=== PATIENT | male | born 1990 | race Caucasian/White ===

== ENCOUNTER 2023-07-09 15:34 | Emergency (ER) | payer OTHER, SELFPAY ==
[2023-07-09 15:37] VITALS: BP 131/80
--- NOTE | 2023-07-09 18:05 | ED.GENMED ---
History of Present Illness
General
Chief Complaint: Headache
Time Seen by Provider: 07/09/23 18:05
Travel History
Have you had any contact with someone who has COVID-19?: No
Do you have any symptoms of coronavirus? Fever > 100 degrees, chills, cough, shortness of breath, sore throat, loss of taste or smell, muscle aches, or headache?: No
History of Present Illness
History of Present Illness:
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 He was initially diagnosed with melanoma in March 2022 with initial concern with disease into the lung. Later was found to be metastatic to the brain. He has been getting radiation.
On his way to radiation today he also had some very mild subjective fever and chills however this is fairly common for him. His main concern was ongoing headache for the past week. When he told the doctors at [facility] for radiation
today, they encouraged him to come to the hospital to get a CT of the brain for further evaluation
EXAM:
GENERAL: Well appearing in no distress
HEENT: Moist oral mucosa
CARDIOVASCULAR: No murmurs, normal heart rate, regular rhythm, No chest wall tenderness
PULMONARY: No respiratory distress, breath sounds are clear and equal
ABDOMEN: Soft with no peritoneal signs, no tenderness
NEUROLOGIC: Excellent strength all extremities, no coordination deficits
PSYCHIATRIC: Appropriate mental status, normal insight and judgement
EXTREMITIES: Nontender, no edema, moves all extremities equally
SKIN: No rash, no lesions
TIME OF INITIAL ENCOUNTER: 6:20 PM
NUMBER AND COMPLEXITY OF PROBLEMS ADDRESSED AT THE ENCOUNTER
� Chronic conditions affecting care: Metastatic melanoma
� Acute Exacerbation and/or Progression of Chronic Illness: This is an acute problem
� Differential Diagnosis includes: Worsening metastatic disease from melanoma to the brain, intracranial hemorrhage, nonspecific headache, migraine type headache, tension type headache
AMOUNT AND/OR COMPLEXITY OF DATA TO BE REVIEWED AND ANALYZED
� I performed an independent evaluation of and my interpretation is:
EKG:
CT: I personally reviewed CT imaging and agree with radiologist interpretation that there is no acute abnormality
X-rays:
Laboratory Studies: Not indicated
Other:
� Review of other/old records: I reviewed records from March 2022 which indicates that the patient was diagnosed with melanoma 8 years earlier
� Clinical information was obtained by an independent historian: None needed
� Prescriptions/Medications Considered but not given:
� Further testing considered but not performed:
RISK OF COMPLICATIONS AND/OR MORBIDITY OR MORTALITY OF PATIENT MANAGEMENT
� Social determinants of health affecting care: Lives at home
� Discussion with other providers:
� Escalation of care including admission/observation vs risk of discharge considered: The patient is very well-appearing and very comfortable in appearance. CT imaging is reassuring. His neurologic exam is unremarkable. He has
appropriate mental status. He is eager to go home. Tylenol was given.
Past History
Past History
ED Past Medical History: Cancer (Melanoma R arm/nodes)
ED Past Surgical History: Other (melanoma and lymph nose resection R arm)
Social History
Tobacco: Non-smoker
Alcohol: Occasional
Drug: None
Personal: Single
Living: with family
Phy Exam
Physical Exam
Physical Exam:
See HPI
Course
Orders/Labs/Results
Orders:
Orders
07/09/23 15:[address] [CT Head W/o Iv Contrast] Urgent
Comment:
Reason For Exam: headahce
07/09/23 18:17
Acetaminophen [Tylenol] 1,000 mg PO NOW STA
Vital Signs
Initial and Last Documented VS:
Initial Vital Signs
Temp Pulse Resp BP Pulse Ox
99.0 F 89 18 131/80 99
07/09/23 15:37 07/09/23 15:37 07/09/23 15:37 07/09/23 15:37 07/09/23 15:37
Last Documented Vital Signs
Temp Pulse Resp BP Pulse Ox
99.1 F 79 16 113/77 97
07/09/23 18:36 07/09/23 18:36 07/09/23 18:36 07/09/23 18:36 07/09/23 18:36
*Critical Care Note
Total Time (30-74mins, 75-104mins- exclusive of procedures): Not Applicable
ED Attending Note
-
Portions of this chart may have been created with voice recognition software.� Occasional wrong word or��sound alike� substitutions may have occurred due to the inherent limitations of voice recognition software.
Discharge Plan
Departure
Patient Disposition: Home (Routine Discharge)
Date of Disposition: 07/09/23
Time of Disposition: 18:20
Patient with high blood pressure during this ER visit?: Yes
Discharge Problem:
Headache
Instructions: Headache, Adult (DC), BLOOD PRESSURE
Prescriptions:
No Action
acetaminophen [Tylenol Extra Strength] 500 mg Tablet
1,000 mg PO TIDPRN PRN (Reason: mild pain)
Tafinlar 75 mg Capsule
150 mg PO Q12H
Mekinist 2 mg Tablet
2 mg PO DAILY
Activity Restrictions/Additional Instructions:
We gave a gram of Tylenol. CT imaging of the brain shows no acute abnormality. Follow-up with your doctors. Return here if worse.
Interventions
Interventions:
*Risk Screen - Suicide Last Done: 07/09/23 15:37
*General Assessment Last Done: 07/09/23 15:37
*Neglect/Abuse Screening Last Done: 07/09/23 15:37
ED- Fall Risk Assessment Last Done: 07/09/23 18:37
*ED COVID-19 Vaccine History Last Done: 07/09/23 15:37
*Nursing Disposition Last Done: 07/09/23 18:37
ED- Neurological Assessment Last Done: 07/09/23 18:33
Discharge Date and Time
Discharge Date/Time: 07/09/23 18:36
Print Language: CYMRAES
[2023-07-09] MEDS: TYLENOL 1000 MG PO (18:24)
[2023-07-09 18:36] VITALS: BP 113/77
== END 2023-07-09 18:36 | disposition home or self-care (01) ==
LOC: EMR 15:34
PROVIDERS: EMERGENCY PHYSICIAN Emergency Medicine; FAMILY PHYSICIAN Internal Medicine
DX: R51.9 Headache, unspecified (principal); C43.9 Malignant melanoma of skin, unspecified; C79.31 Secondary malignant neoplasm of brain
CPT/HCPCS: 99284; 70450

== ENCOUNTER → 2023-08-20 12:47 | Outpatient (REF) | payer OTHER, SELFPAY | LOC: MRI 3T 12:47 | PROVIDERS: ATTENDING PHYSICIAN Radiology Radiation Oncology; FAMILY PHYSICIAN Internal Medicine; REFERRING PHYSICIAN Internal Medicine Medical Oncology | DX: C79.31 Secondary malignant neoplasm of brain (principal); C79.49 Secondary malignant neoplasm of other parts of nervous system | CPT/HCPCS: 70553; A9575 ==

== ENCOUNTER → 2023-08-28 12:08 | Outpatient (REF) | payer OTHER, SELFPAY | LOC: RAD 12:08 | PROVIDERS: ATTENDING PHYSICIAN Physician Assistant Medical; FAMILY PHYSICIAN Internal Medicine; REFERRING PHYSICIAN Internal Medicine Medical Oncology | DX: C43.59 Malignant melanoma of other part of trunk (principal) | CPT/HCPCS: 71260; 74177; Q9967 ==

== ENCOUNTER 2023-09-26 19:32 | Emergency (ER) | payer OTHER, SELFPAY ==
[2023-09-26 19:34] VITALS: BP 123/74
[2023-09-26 19:35] VITALS: BMI 28.0
[2023-09-26 19:37] LABS: Glucose - Point of Care 184 mg/dl (70-99)
--- NOTE | 2023-09-26 19:38 | ED.GENMED ---
History of Present Illness
General
Chief Complaint: Seizure
Source: records and ambulance crew
Exam Limitations: altered mental status
Time Seen by Provider: 09/26/23 19:34
Nursing documentation reviewed up to this point in time: agreed with
History of Present Illness
History of Present Illness:
32-year-old male presents with a tonic-clonic seizure lasting a few minutes [place] the [place] left-sided weakness, via EMS no history of seizures by report no trauma, prior records reviewed has a history of metastatic melanoma currently
followed at [place] does not appear to be on any antiepileptics,
Patient's medical oncologist at [facility] [facility] is Dr. Stan West to [phone]
I did reach out to him to update him on the situation he is in agreement with the patient's plan of care he is available by phone at all times
Past History
Past History
ED Past Medical History: Cancer (Melanoma R arm/nodes)
ED Past Surgical History: Other (melanoma and lymph nose resection R arm)
Social History
Tobacco: Non-smoker
Alcohol: Occasional
Drug: None
Personal: Single
Living: with family
Review of Systems
Review of Systems
All Other Systems: Not applicable
Phy Exam
Physical Exam
Physical Exam:
Physical Exam
General: Postictal 32 male no overt signs of trauma
Neck: No jaundice
Heart: Regular
Lungs: no acute respiratory distress. clear bilaterally
Abdomen: Nontender
Neuro: Postictal left-sided weakness
Skin: no rash
Extremities: No edema
Course
Orders/Labs/Results
Orders:
Orders
09/26/23 19:35
Electrocardiogram (*1) Stat
Reason for Study: Other
Other Reason for Exam: Headache
CT Head W/o Cont STROKE ALERT Urgent
Reason For Exam: seizure brain mets
Cardiac Monitoring- Treatment ONCE
EKG- Treatment ONCE
IV Insert/Care/Rem.- Treatment PRN
09/26/23 19:36
Bedside Glucose- Treatment ONCE
Levetiracetam Injectable [Keppra] 2,000 mg IV NOW STA
09/26/23 19:37
Complete Blood Count/With Diff Urgent
Comprehensive Metabolic Panel Urgent
Erythrocyte Sed Rate Urgent
PTT Urgent
Prothrombin Time Urgent
09/26/23 19:43
CR Chest Portable - 1 View Urgent
Comment:
Reason For Exam: sziure melanoma
Reason Study Needs to be Portable: Patient Unstable
09/26/23 20:10
Lorazepam [Ativan] 2 mg IV NOW STA
Abnormal Lab Results
09/26/23 09/26/23
19:36 19:37
RDW 15.9 H %
(11.5-14.5)
Immature Gran % 0.6 H %
(0-0.5)
Carbon Dioxide 8 L* mmol/L
(22-30)
Glucose 177 H mg/dl
(70-99)
Total Bilirubin 1.6 H mg/dl
(0.2-1.3)
AST 235 H U/L
(17-59)
ALT 288 H U/L
(0-50)
Alkaline Phosphatase 144 H U/L
(38-126)
Albumin 5.1 H g/dl
(3.5-5.0)
POC Glucose 184 H mg/dl
(70-99)
09/26/23 19:37
09/26/23 19:37
Vital Signs
Initial and Last Documented VS:
Initial Vital Signs
BP
123/74
09/26/23 19:34
Last Documented Vital Signs
Temp Pulse Resp BP Pulse Ox
98.4 F 85 25 120/75 95
09/26/23 19:56 09/26/23 20:30 09/26/23 20:30 09/26/23 20:00 09/26/23 20:30
MDM/Problems Addressed
Differential Diagnosis Includes:
New onset seizure intracerebral hemorrhage seizure with Mik's paralysis doubt ischemic stroke based on history and physical
MDM/Problems Addressed:
Seizure left-sided weakness
Chronic conditions affecting care:
Brain mets
Acute Exacerbation and/or Progression of Chronic Illness:
Brain mets
*Radiology
Radiology exam reviewed: radiology read reviewed
*Pulse Oximetry
Patient hypoxic: no
*EKG
Interpreted by ED Provider?: Yes
EKG Intrepretation Date: 09/26/23
EKG Intrepretation Time: 20:54
Interpretation: abnormal
Comparison EKG: no comparison EKG present
Heart Rate: 78
Rate: normal
Rhythm: sinus
Ischemia: non-specific ST changes
*Psychologist Social Interpretation
Rate: tachycardiac
Interpretation: abnormal
Heart Rate: 78
*Critical Care Note
Total Time (30-74mins, 75-104mins- exclusive of procedures): 32
Update Note
Update Note:
Initial stroke alert called, in retrospect I do not believe he is a candidate for lytics as he had a tonic-clonic seizure with known brain mets, will send for CT to rule out hemorrhage, the meantime started on antiepileptics
Briefly reviewed with neurology as per the stroke alert protocol in agreement that the patient is not a lytic candidate as he be very high risk for bleeding
Message from radiology negative hemorrhage
Nursing states that his left arm weakness is improved left leg still weak
Perhaps this is seizure with Mik's paralysis
8 PM discussed with parents and trolley coach driver who witnessed the event patient just had his eighth of scheduled 10 proton therapy treatments at [facility], comanaged with Omid Murray
Reviewed with the [facility] have been excepted
ED Attending Note
-
Portions of this chart may have been created with voice recognition software.� Occasional wrong word or��sound alike� substitutions may have occurred due to the inherent limitations of voice recognition software.
Discharge Plan
Departure
Patient Disposition: Acute Care Hospital
Date of Disposition: 09/26/23
Time of Disposition: 20:54
Condition: Serious
Discharge Problem:
New onset seizure
Instructions: Seizures, Adult (DC)
Prescriptions:
No Action
acetaminophen [Tylenol Extra Strength] 500 mg Tablet
1,000 mg PO TIDPRN PRN (Reason: mild pain)
Tafinlar 75 mg Capsule
150 mg PO Q12H
Mekinist 2 mg Tablet
2 mg PO DAILY
Referrals:
UNKNOWN - PT DOES,NOT KNOW [Family Provider] -
Hospital Transfer
Other hospital: [facility]
I certify that the patient requires transfer: Yes
Discussed case with accepting physician: [facility]
Reason for transfer: higher level of care
Interventions
Interventions:
*Risk Screen - Suicide Last Done: 09/26/23 19:41
*General Assessment Last Done: 09/26/23 19:58
*Neglect/Abuse Screening Last Done: 09/26/23 19:41
ED- Fall Risk Assessment Last Done: 09/26/23 19:47
*ED COVID-19 Vaccine History Last Done: 09/26/23 19:41
ED- Cardiac Assessment Last Done: 09/26/23 19:47
ED- Neurological Assessment Last Done: 09/26/23 19:47
ED- Pulmonary Assessment Last Done: 09/26/23 19:47
Discharge Date and Time
Print Language: LAO
[2023-09-26] MEDS: KEPPRA 2000 MG IV (19:45)
[2023-09-26 19:49] LABS: % Basophils 0.2 % (0-2); % Immature Granulocytes 0.6 % (0-0.5); % Lymphocytes 22.3 % (20.5-51.1); % Monocytes 3.9 % (1.7-9.3); Absolute Lymphocytes 1.2 10^3/uL (1.2-3.4); Absolute Monocytes 0.2 10^3/uL (0.1-0.6); Absolute Neutrophils 3.9 10^3/uL (1.4-6.5); Hemoglobin 15.4 g/dL (13.0-18.0); Mean Corpuscular Hgb 30.6 pg (27.0-31.0); Mean Corpuscular Volume 87.3 fL (80.0-94.0); Mean Platelet Volume 8.4 fL (7.4-10.4); Nucleated Red Blood Cells % 0 % (-); Platelet Count 138 10^3/uL (130-400); Red Blood Cell Count 5.04 10^6/uL (4.70-6.10); Red Cell Dist. Width 15.9 % (11.5-14.5); White Blood Cell Count 5.3 10^3/uL (4.8-10.8)
[2023-09-26 19:55] LABS: APTT 26.7 Sec (23.4-35.0); INR 1.05; PT 13.7 Sec (11.4-14.6)
[2023-09-26 19:56] VITALS: BP 123/74
[2023-09-26 19:56] LABS: Erythrocyte Sed Rate 11 mm/hour (0-20)
[2023-09-26 20:00] VITALS: BP 120/75
[2023-09-26] MEDS: ATIVAN 2 MG IV (20:14)
[2023-09-26 20:16] LABS: ALT (SGPT) 288 U/L (0-50); AST (SGOT) 235 U/L (17-59); Albumin 5.1 g/dl (3.5-5.0); Alkaline Phosphatase 144 U/L (38-126); Blood Urea Nitrogen 13 mg/dl (9-20); Calcium 9.7 mg/dl (8.4-10.2); Carbon Dioxide 8 mmol/L (22-30); Chloride 105 mmol/L (98-107); Estimated Creatinine Clearance 118 ml/min; Glucose 177 mg/dl (70-99); Potassium 4.5 mmol/L (3.5-5.1); Sodium 137 mmol/L (135-145); Total Bilirubin 1.6 mg/dl (0.2-1.3); Total Protein 7.9 g/dl (6.3-8.2); eGFR > 60.00
[2023-09-26 21:00] VITALS: BP 99/73
[2023-09-26 21:23] VITALS: BP 100/69
[2023-09-26] MEDS: NSS 1000 IV (21:37)
[2023-09-26 22:00] VITALS: BP 111/98
[2023-09-27] MEDS: ATIVAN 1 MG IV (00:01)
== END 2023-09-27 00:18 | disposition short-term general hospital (02) ==
LOC: EMR 19:32
PROVIDERS: EMERGENCY PHYSICIAN Emergency Medicine; FAMILY PHYSICIAN Internal Medicine Medical Oncology
DX: R56.9 Unspecified convulsions (principal)
CPT/HCPCS: 99291; 96374; 96375; 96361; 96376; 70450; 71045; 80053; 82962; 85025; 85610; 85652; 85730; 93005

== ENCOUNTER 2023-10-20 15:14 | Emergency (ER) | payer OTHER, SELFPAY ==
[2023-10-20 15:18] VITALS: BP 108/75
[2023-10-20 16:52] LABS: % Basophils 0.2 % (0-2); % Lymphocytes 4.4 % (20.5-51.1); % Monocytes 5.8 % (1.7-9.3); % Neutrophils 88.6 % (42.2-75.2); Absolute Immature Granulocytes 0.1 10^3/uL (0-0.05); Absolute Lymphocytes 0.2 10^3/uL (1.2-3.4); Absolute Monocytes 0.3 10^3/uL (0.1-0.6); Absolute Neutrophils 4.6 10^3/uL (1.4-6.5); Hematocrit 37.6 % (39.0-52.0); Mean Corp Hgb Conc. 34.6 g/dL (33.0-37.0); Mean Corpuscular Hgb 30.9 pg (27.0-31.0); Mean Corpuscular Volume 89.3 fL (80.0-94.0); Mean Platelet Volume 8.7 fL (7.4-10.4); Nucleated Red Blood Cells % 0 % (-); Platelet Count 218 10^3/uL (130-400); Red Blood Cell Count 4.21 10^6/uL (4.70-6.10); Red Cell Dist. Width 17.2 % (11.5-14.5); White Blood Cell Count 5.2 10^3/uL (4.8-10.8)
[2023-10-20 17:00] VITALS: BP 124/90
[2023-10-20 17:17] LABS: ALT (SGPT) 1022 U/L (0-50); AST (SGOT) 292 U/L (17-59); Albumin 3.4 g/dl (3.5-5.0); Alkaline Phosphatase 187 U/L (38-126); Blood Urea Nitrogen 15 mg/dl (9-20); Calcium 9.3 mg/dl (8.4-10.2); Carbon Dioxide 26 mmol/L (22-30); Chloride 105 mmol/L (98-107); Glucose 111 mg/dl (70-99); Potassium 4.2 mmol/L (3.5-5.1); Sodium 138 mmol/L (135-145); Total Bilirubin 2.2 mg/dl (0.2-1.3); Total Protein 5.9 g/dl (6.3-8.2); eGFR > 60.00
[2023-10-20] MEDS: BENADRYL 25 MG IV (17:20)
[2023-10-20] MEDS: COMPAZINE 10 MG IV (17:20)
[2023-10-20] MEDS: NSS 1000 IV (17:21)
--- NOTE | 2023-10-20 18:17 | ED.GENMED ---
History of Present Illness
General
Chief Complaint: Headache
Source: patient
Exam Limitations: none
Time Seen by Provider: 10/20/23 16:55
History of Present Illness
History of Present Illness:
32-year-old male presents with increased and persistent headache with associated nausea. He also noted abdominal pain earlier today. He has a history of metastatic melanoma and is followed at [address] [place] [address]. I received a call in from the
patient's oncologist, Dr. Palomares. He was recently admitted to [facility] for hepatic toxicity secondary to one of the medications he was on. This was stopped. Family noted some confusion earlier today. Per the patient his complaint at this time is
headache only. He denies abdominal pain. He feels he is more clear than he was earlier this morning. Is not uncommon for him to have headaches in the morning. This headache feels similar to once he is experienced in the past. He denies a sudden
onset headache.
Past History
Past History
ED Past Medical History: Cancer (Melanoma R arm/nodes)
ED Past Surgical History: Other (melanoma and lymph nose resection R arm)
Social History
Tobacco: Non-smoker
Alcohol: Occasional
Drug: None
Personal: Single
Living: with family
Phy Exam
Physical Exam
Physical Exam:
General: Well-appearing male no acute respiratory distress
HEENT normocephalic
Heart: Regular rate and rhythm no murmurs
Lungs: Clear to auscultation bilaterally
Abdomen is soft nontender nondistended
Neurologic alert and oriented x 3 no facial asymmetry conversing appropriately no unilateral weakness
Extremities: No sign of
Course
Orders/Labs/Results
Orders:
Orders
10/20/23 16:43
CMP [Comprehensive Metabolic Panel] Urgent
10/20/23 16:45
Complete Blood Count/With Diff Urgent
10/20/23 17:06
CT Head W/o Iv Contrast Urgent
Comment:
Reason For Exam: headache
10/20/23 17:11
0.9% Sodium Chloride 1000 ml [Nss] 1,000 ml IV BOLUS
Diphenhydramine [Benadryl] 25 mg IV NOW STA
Prochlorperazine [Compazine] 10 mg IV NOW STA
Abnormal Lab Results
10/20/23 10/20/23
16:43 16:45
RBC 4.21 L 10^6/uL
(4.70-6.10)
Hct 37.6 L %
(39.0-52.0)
RDW 17.2 H %
(11.5-14.5)
Abs Immat Gran (auto) 0.1 H 10^3/uL
(0-0.05)
Absolute Lymphs (auto) 0.2 L 10^3/uL
(1.2-3.4)
Immature Gran % 1.0 H %
(0-0.5)
Neutrophils % 88.6 H %
(42.2-75.2)
Lymphocytes % 4.4 L %
(20.5-51.1)
Glucose 111 H mg/dl
(70-99)
Total Bilirubin 2.2 H mg/dl
(0.2-1.3)
AST 292 H U/L
(17-59)
ALT 1022 H* U/L
(0-50)
Alkaline Phosphatase 187 H U/L
(38-126)
Total Protein 5.9 L g/dl
(6.3-8.2)
Albumin 3.4 L g/dl
(3.5-5.0)
10/20/23 16:45
10/20/23 16:43
Vital Signs
Initial and Last Documented VS:
Initial Vital Signs
Temp Pulse Resp BP Pulse Ox
98.0 F 74 18 108/75 98
10/20/23 15:18 10/20/23 15:18 10/20/23 15:18 10/20/23 15:18 10/20/23 15:18
Last Documented Vital Signs
Temp Pulse Resp BP Pulse Ox
98.0 F 74 18 108/75 98
10/20/23 15:18 10/20/23 15:18 10/20/23 15:18 10/20/23 15:18 10/20/23 15:18
MDM/Problems Addressed
Differential Diagnosis Includes:
Patient sent in for possible change in mental status and increased headache. Known history of metastatic melanoma. Just discharged [facility] yesterday secondary hepatic toxicity due to the medications he was on.
Evaluated today. Patient with elevated liver functions. ALT was 1022 AST 292 total bilirubin is 2.2. Alk phos is 197. I spoke with the physician at [facility] and received information from her regarding the labs from yesterday.
Total bilirubin yesterday was 2.4 AST was 174. ALT was 1006 and alk phos was 173. Overall steady without significant increase. CT of the head ordered today. Also treated for headache with saline Compazine Benadryl. Patient reevaluated and is
resting
*Critical Care Note
Total Time (30-74mins, 75-104mins- exclusive of procedures): Not Applicable
Update Note
Update Note:
Patient reexamined feeling better resting comfortably. CT head negative. This laboratory findings with oncology at [facility]. His liver functions today are abnormal but yesterday's values [facility] for very similar and actually getting better.
This is not a new finding regarding the abnormal liver functions. Patient does stable for discharge with follow-up with his treating team
ED Attending Note
-
Portions of this chart may have been created with voice recognition software.� Occasional wrong word or��sound alike� substitutions may have occurred due to the inherent limitations of voice recognition software.
Discharge Plan
Departure
Patient Disposition: Home (Routine Discharge)
Date of Disposition: 10/20/23
Time of Disposition: 19:31
Patient with high blood pressure during this ER visit?: No
Discharge Problem:
Headache
Instructions: Headache, Adult (DC)
Prescriptions:
No Action
acetaminophen [Tylenol Extra Strength] 500 mg Tablet
1,000 mg PO TIDPRN PRN (Reason: mild pain)
Tafinlar 75 mg Capsule
150 mg PO Q12H
Mekinist 2 mg Tablet
2 mg PO DAILY
Referrals:
Marcos Huffman MD [Family Provider] -
Activity Restrictions/Additional Instructions:
Continue current medication regimen. Please return here for worsening symptoms otherwise continue to follow-up with your oncology team
Interventions
Interventions:
*Risk Screen - Suicide Last Done: 10/20/23 15:21
*General Assessment Last Done: 10/20/23 15:21
*Neglect/Abuse Screening Last Done: 10/20/23 15:21
*ED COVID-19 Vaccine History Last Done: 10/20/23 16:27
ED- Neurological Assessment Last Done: 10/20/23 16:39
Discharge Date and Time
Print Language: BENGALI
[2023-10-20 19:43] VITALS: BP 116/85
== END 2023-10-20 19:55 | disposition home or self-care (01) ==
LOC: EMR 15:14
PROVIDERS: EMERGENCY PHYSICIAN Emergency Medicine; FAMILY PHYSICIAN Internal Medicine
DX: R51.9 Headache, unspecified (principal); Z85.820 Personal history of malignant melanoma of skin
CPT/HCPCS: 99284; 96374; 96375; 96361; 70450; 80053; 85025

== ENCOUNTER 2023-10-26 13:07 | Outpatient (RCR) | payer OTHER, SELFPAY | END 2023-10-26 23:59 | disposition home or self-care (01) | LOC: RPT 13:07 | PROVIDERS: ATTENDING PHYSICIAN Internal Medicine; FAMILY PHYSICIAN Nurse Practitioner Adult Health | DX: M62.81 Muscle weakness (generalized) (principal); G31.84 Mild cognitive impairment of uncertain or unknown etiology; G40.409 Other generalized epilepsy and epileptic syndromes, not intractable, without status epilepticus; C43.9 Malignant melanoma of skin, unspecified; R90.89 Other abnormal findings on diagnostic imaging of central nervous system; Z73.6 Limitation of activities due to disability | CPT/HCPCS: 97163 ==